=== PATIENT | female | born 1945 | race Caucasian/White ===

== ENCOUNTER 2019-10-18 10:45 | Outpatient (CLI) | payer MEDICARE, SELFPAY ==
--- NOTE | 2019-10-18 10:52 | US_ITS ---
WS: [id number] RIGHT UPPER QUADRANT ULTRASOUND HISTORY: ABD PAIN COMPARISON: CT 07/09/2009 Liver: 13.8 cm in length. Liver is normal size. No intrahepatic mass. There is mild central duct dila tation. Gallbladder: Normally distended gallbladder. Transverse diameter less than 4 cm. No stones. CBD: 1.1 cm Pancreas: There is marked dilatation of the pancreatic duct measuring 8 mm. There is fullness and dec reased echogenicity at the pancreatic head. Highly suspicious for pancreatic head mass measuring 3.7 x 2.6 cm. Right kidney: 11.1 cm in length. Normal size kidney. Cyst from the lower pole measures 2.2 x 2.3 x 2. 3 cm. Aorta and IVC: Unremarkable. No ascites. US/US abdomen limited 30052 IMPRESSION: 1. Highly suspicious for pancreatic head mass measuring 3.7 x 2.6 cm causing p ancreatic duct and common bile duct obstruction. Recommend follow-up CT abdomen and pelvis with IV and oral contrast. 2. No cholelithiasis.
--- NOTE | 2019-10-18 10:53 | XR_ITS ---
WS: [id number] CHEST 2 VIEWS HISTORY: CHRONIC COUGHING COMPARISON: 07/02/2017 Lungs: Normally aerated lungs. 1.4 cm soft tissue nodule in the mid RIGHT lung was not present on the prior studies. There is very minimal blunting of the RIGHT costophrenic angle. Possible subcentimete r nodule in the LEFT upper lobe. Cardiac size: Normal. Mediastinum/Aorta: Mild atherosclerosis aorta. Bones: Moderate increase in thoracic kyphosis. Degenerative disc space narrowing and desiccation thro ughout the thoracic spine. XR/XR chest 2V* 27913 IMPRESSION: 1. Highly suspicious for bilateral pulmonary nodules. The largest in the RIGHT lung measures 1.4 cm. Recommend follow-up chest CT with IV contrast to exclude neoplasm. 2. Small RIGHT pleural effusion.
== END 2019-10-18 10:46 | disposition home or self-care (01) ==
LOC: RAD 10:49
PROVIDERS: Family Provider Family Medicine; PCP Family Medicine; Visit Provider Family Medicine
DX: R10.84 Generalized abdominal pain (principal); K90.9 Intestinal malabsorption, unspecified; K90.3 Pancreatic steatorrhea; R19.7 Diarrhea, unspecified; R05 Cough; R91.8 Other nonspecific abnormal finding of lung field; J90 Pleural effusion, not elsewhere classified
CPT/HCPCS: 71046; 76705

== ENCOUNTER 2019-10-24 13:26 | Outpatient (CLI) | payer MEDICARE, SELFPAY ==
--- NOTE | 2019-10-24 13:33 | CT_ITS ---
WS: [id number] CT CHEST AND ABDOMEN WITH CONTRAST HISTORY: LUNG NODULE, PANCREATIC ADENOCARCINOMA, PANCREATIC MASS TECHNIQUE: Axial imaging is performed through the chest and abdomen with IV and oral contrast.. Sagit michael and coronal reformats. All CT scans at [facility] use at least one of these dose opti mization techniques: automated exposure control; mA and/or kV adjustment per patient size (includes t argeted exams where dose is matched to clinical indication); or iterative reconstruction. CONTRAST: Visipaque 320; 50 mL IV. DLP: 1320.05 mGycm COMPARISON: 07/09/2009, 10/18/2019. Chest CT: Lungs are slightly hyperexpanded. Solid nodule in the periphery RIGHT upper lobe measures 12 x 14 mm. There is a cavitary mass with thick wall LEFT upper lobe with a maximum diameter of 10 mm. Margins a re slightly spiculated. There is an additional thick wall cavitary lesion measuring 0.8 mm in the RIG HT lower lobe. Linear atelectasis at the RIGHT lung base. No pericardial or pleural effusions. Mildly enlarged heart. Coronary artery stent and atherosclerosis of the coronary arteries. No mediastinal o r hilar adenopathy. Subcentimeter nodule in the LEFT thyroid lobe. Moderate increase in thoracic kyphosis. Degenerative changes in the midthoracic spine Abdomen CT: There is marked intrahepatic and extrahepatic duct dilatation. Low-attenuation in the pancreatic head with mild diffuse enhancement. Common bile duct tapers rapidly at the pancreatic head. Enhancing mas s of the pancreatic head measures 2.1 x 3.6 cm. The pancreatic duct distal to the pancreatic head is dilated and there is severe loss of the normal pancreatic tissue. No metastatic lesion in the liver. Low level echoes within the gallbladder. Normal size spleen. Mild hyperplasia of the LEFT adrenal gla nd. RIGHT adrenal gland is normal. Small cyst within each kidney with no obstruction. Atherosclerosis aorta. Mild aneurysmal dilatation infrarenal aorta to 3.0 cm. There are some very small shoddy lymph nodes near the pancreatic head. No enlarged lymph nodes. Osseous structures: Sclerotic changes and disc space narrowing throughout the lumbar spine. Calcifica tion along the posterior longitudinal ligament at the T11-12 level. Mild encroachment upon the thecal sac. CT/CT chest abdomen w con* IMPRESSION: 1. Significant intrahepatic and extra hepatic duct dilatation with the common bile duct measuring up to 1.4 cm. 2. Mass at the pancreatic head concerning for neoplasm measuring 2.1 x 3.6 cm. Distal pancreatic duct is dilated with severe atrophy of the body and tail of the pancreas. 3. Small subcentimeter lymph nodes near the pancreatic head. 4. Mild hyperplasia LEFT adrenal gland. 5. Bilateral pulmonary nodules. The largest is solid measuring 12 x 14 mm in t he RIGHT upper lobe. 2 cavitary lesions are also identified one in the RIGHT lo wer lobe and one in the LEFT upper lobe. Suspicious for metastatic sites versus primary sites. 6. Abdominal aortic aneurysm at 3.0 cm.
[2019-10-24] MEDS: iodixanol 320 mg/mL 100mL Btl IV (15:29)
[2019-10-24 15:42] LABS: Blood Urea Nitrogen 24 mg/dL (8-23)
== END 2019-10-24 13:27 | disposition home or self-care (01) ==
LOC: RADWPI 13:30
PROVIDERS: Family Provider Family Medicine; PCP Family Medicine; Visit Provider Family Medicine
DX: R91.8 Other nonspecific abnormal finding of lung field (principal); K86.89 Other specified diseases of pancreas; E11.65 Type 2 diabetes mellitus with hyperglycemia; C25.3 Malignant neoplasm of pancreatic duct; I71.4 Abdominal aortic aneurysm, without rupture
CPT/HCPCS: 71260; 74160; 82565; 84520; Q9967